=== PATIENT | female | born 1995 | race African-American/Black ===

== ENCOUNTER 2023-01-02 12:35 | Outpatient (CLI) | payer OTHER | END 2023-01-02 14:13 | disposition home or self-care (01) | LOC: PRENATAL 12:35 | PROVIDERS: ATTEND Obstetrics & Gynecology Maternal & Fetal Medicine | DX: O36.80X0 Pregnancy with inconclusive fetal viability, not applicable or unspecified (principal); Z36.9 Encounter for antenatal screening, unspecified; Z3A.11 11 weeks gestation of pregnancy ==